=== PATIENT | female | born 1955 | race American Indian/Alaskan Native ===

== ENCOUNTER 2023-02-03 11:43 | Inpatient (IN) | payer OTHER ==
[2023-02-03] MEDS ORDERED: Albuterol/Ipratropium 3.0-0.5 MG/3 ML Neb Soln NEB ONE (12:01)
[2023-02-03] MEDS ORDERED: Sodium Chloride 0.9% 1,000 ML IV ONE ×3 (12:04→12:55)
[2023-02-03] MEDS ORDERED: cefTRIAXone 2 GM Vial IVPUSH ONE (12:06)
[2023-02-03] MEDS ORDERED: methylPREDNISolone Sodium Succinate 125 MG/2 ML SDV IVPUSH ONE (12:06)
[2023-02-03] MEDS ORDERED: Ondansetron 4 MG/2 ML SDV IV ONE ×2 (12:19→12:55)
[2023-02-03] MEDS ORDERED: Pantoprazole 40 MG Vial IVPUSH ONE (12:19)
[2023-02-03 12:21] LABS: HEMATOCRIT 25.4 % (37.0-47.0); HEMOGLOBIN 8.4 g/dL (12.0-16.0); MEAN CORPUSCULAR HGB CONC 33.1 g/dL (33.0-35.0); MEAN CORPUSCULAR VOLUME 87.6 fL (80-100); PLATELET COUNT,PLT 121 10^3/uL (150-450); WHITE BLOOD CELL COUNT,WBC 11.1 10^3/uL (5.0-10.0)
[2023-02-03] MEDS: Sodium Chloride 0.9% 10 ML Syringe FLUSH PRN ×4 (12:24→21:25)
[2023-02-03] MEDS ORDERED: Pantoprazole 40 MG in Sodium Chloride 0.9% 100 ML IV SCH (12:30)
[2023-02-03 12:31] LABS: BASOPHILS PERCENT AUTO 0.1 % (0.0-1.0); LYMPHOCYTES PERCENT AUTO 9.8 % (20.5-50.1); MONOCYTES PERCENT AUTO 6.9 % (2-8); NEUTROPHILS PERCENT AUTO 83.2 % (42.2-75.2)
[2023-02-03 12:38] LABS: APPEARANCE,URINE CLEAR (CLEAR); BILIRUBIN,URINE SMALL (NEGATIVE); COLOR,URINE YELLOW (YELLOW); GLUCOSE,URINE NEGATIVE (NEGATIVE); KETONES,URINE 15 (NEGATIVE); LEUKOCYTE ESTERASE,URINE NEGATIVE (NEGATIVE); NITRITE,URINE NEGATIVE (NEGATIVE); OCCULT BLOOD,URINE MODERATE (NEGATIVE); PH,URINE 5.5 (5.0-9.0); PROTEIN,URINE 100 (NEGATIVE); UROBILINOGEN,URINE 0.2 mg/dL (0.2-1.0)
[2023-02-03 12:42] LABS: INR 1.1 (0.9-1.2); PROTHROMBIN TIME 10.9 SEC (9.0-12.0); PTT,PARTIAL THROMBOPLSTIN TIME 41.4 SEC (22.0-34.0)
[2023-02-03 12:42] LABS: AMPHETAMINES,URINE NEGATIVE (NEGATIVE); BARBITURATES,URINE NEGATIVE (NEGATIVE); BENZODIAZEPINE,URINE NEGATIVE (NEGATIVE); MDMA (ECSTASY), URINE NEGATIVE (NEGATIVE); METHADONE,URINE NEGATIVE (NEGATIVE); METHAMPHETAMINES,URINE NEGATIVE (NEGATIVE); OPIATES,URINE NEGATIVE (NEGATIVE); OXYCODONE,URINE NEGATIVE (NEGATIVE); PHENCYCLIDINE,URINE NEGATIVE (NEGATIVE); TCA,URINE NEGATIVE (NEGATIVE)
[2023-02-03 12:47] LABS: B-TYPE NATRIURETIC PEPTIDE,BNP 12 pg/ml (0-100)
[2023-02-03 12:49] LABS: AMORPHOUS SEDIMENT,URINE FEW /HPF (NOT SEEN); BACTERIA,URINE MODERATE /HPF (0-FEW/HPF); EPITHELIAL CELLS,URINE FEW /HPF (NOT SEEN); HYALINE CASTS,URINE RARE; MUCUS,URINE FEW /LPF (NOT SEEN); WBC,URINE 0-5 /HPF (0-5/HPF)
[2023-02-03 12:49] LABS: LACTIC ACID 1.4 mmol/L (0.4-2.0)
[2023-02-03 12:50] LABS: BAND PERCENT MAN 14 %; LYMPHOCYTES PERCENT MAN 12 % (20-50); MONOCYTES PERCENT MAN 10 % (2-8); SEG NEUTROPHILS PERCENT MAN 64 % (42-75)
[2023-02-03 12:51] LABS: ALANINE AMINOTRANSFERASE,ALT 18 U/L (14-59); ALKALINE PHOSPHATASE 52 U/L (46-116); ANION GAP 16.2 mEq/L (7-13); ASPARTATE AMNIOTRANSFERASE,AST 25 U/L (15-37); BILIRUBIN TOTAL 0.4 mg/dL (0.2-1.0); BLOOD UREA NITROGEN,BUN 23 mg/dL (7-18); BUN/CREATININE RATIO 44.2 (No establ ref range); CARBON DIOXIDE,CO2 15 mmol/L (21-32); CHLORIDE,CL 116 mmol/L (98-107); CREATININE 0.52 mg/dL (0.55-1.02); EST CRCL DRUG DOSING (CG) 79.22 mL/min; GLUCOSE RANDOM 137 mg/dL (70-99); SODIUM,NA 145 mmol/L (136-145)
[2023-02-03 12:53] LABS: ESTIMATED GFR 102 mL/min (>=60); POTASSIUM,K 2.2 mmol/L (3.5-5.1)
[2023-02-03 12:54] LABS: A/G RATIO 0.33; CALCIUM 5.6 mg/dL (8.5-10.1); ETHANOL BLOOD MEDICAL < 3 mg/dL (0)
[2023-02-03] MEDS ORDERED: Vancomycin 2 GM in Sodium Chloride 0.9% 500 ML IV ONE (12:56)
[2023-02-03] MEDS ORDERED: NS with KCl 40mEq 1,000 ML IV SCH (13:00)
[2023-02-03] MEDS ORDERED: Magnesium Sulfate/Water 2 GM in Premix Bag 1 BAG IV ONE ×5 (13:20→13:22)
[2023-02-03] MEDS ORDERED: Calcium Chloride 10% 1 GM/10 ML Syringe IVPUSH ONE (13:20)
[2023-02-03] MEDS ORDERED: Bisacodyl 5 MG Tab PO PRN (16:25)
[2023-02-03] MEDS ORDERED: Docusate Sodium 100 MG Cap PO PRN (16:25)
[2023-02-03] MEDS ORDERED: Ondansetron 4 MG/2 ML SDV IVPUSH PRN (16:25)
[2023-02-03] MEDS ORDERED: NS + KCl 20mEq/L 1,000 ML IV SCH (16:30)
[2023-02-03] MEDS ORDERED: Potassium Chloride 20 MEQ in Premix Bag 1 BAG IV STA (16:35)
[2023-02-03] MEDS ORDERED: Potassium Chloride 10 MEQ Tab.ER PO STA (16:35)
[2023-02-03 16:55] LABS: CORONAVIRUS COVID-19 NAA NEGATIVE (NEGATIVE); INFLUENZA A NAA NEGATIVE (NEGATIVE); INFLUENZA B NAA NEGATIVE (NEGATIVE); RESPIRATORY SYNCYTIAL VIR NAA NEGATIVE (NEGATIVE)
[2023-02-03 17:04] LABS: HEMATOCRIT 32.7 % (37.0-47.0); MEAN CORPUSCULAR HEMOGLOBIN 29.3 pg (27.0-34.0); MEAN CORPUSCULAR HGB CONC 33.6 g/dL (33.0-35.0); MEAN CORPUSCULAR VOLUME 87.2 fL (80-100); RED BLOOD CELL COUNT 3.75 10^6/uL (4.2-5.4)
[2023-02-03] MEDS ORDERED: Glucagon,Human Recombinant 1 MG Vial IM PRN (17:07)
[2023-02-03] MEDS ORDERED: 50% Dextrose in Water 50 ML Syringe IVPUSH PRN (17:07)
[2023-02-03 17:26] LABS: ANION GAP 17.5 mEq/L (7-13); CALCIUM 9.3 mg/dL (8.5-10.1); CREATININE 0.79 mg/dL (0.55-1.02); EST CRCL DRUG DOSING (CG) 52.14 mL/min; POTASSIUM,K 4.5 mmol/L (3.5-5.1)
[2023-02-03] MEDS: Insulin Lispro 100 Units/ML 3 ML Vial SUBCUT SCH ×2 (18:07→21:22)
[2023-02-03] MEDS: Albuterol/Ipratropium 3.0-0.5 MG/3 ML Neb Soln NEB PRN (19:21)
[2023-02-03] MEDS: methylPREDNISolone Sodium Succinate 40 MG/1 ML SDV IVPUSH SCH (19:39)
[2023-02-03] MEDS: Albuterol 0.083% 2.5 MG/3 ML Neb Soln NEB PRN ×2 (19:54→22:02)
[2023-02-03 20:23] LABS: APPEARANCE,URINE CLEAR (CLEAR); BILIRUBIN,URINE NEGATIVE (NEGATIVE); COLOR,URINE YELLOW (YELLOW); GLUCOSE,URINE 500 (NEGATIVE); KETONES,URINE 40 (NEGATIVE); LEUKOCYTE ESTERASE,URINE NEGATIVE (NEGATIVE); NITRITE,URINE NEGATIVE (NEGATIVE); OCCULT BLOOD,URINE MODERATE (NEGATIVE); PROTEIN,URINE 30 (NEGATIVE); UROBILINOGEN,URINE 0.2 mg/dL (0.2-1.0)
[2023-02-03 20:31] LABS: BACTERIA,URINE OCCASIONAL /HPF (0-FEW/HPF); EPITHELIAL CELLS,URINE FEW /HPF (NOT SEEN); WBC,URINE 0-5 /HPF (0-5/HPF)
[2023-02-03] MEDS: Pantoprazole 40 MG Vial IVPUSH SCH (21:26)
[2023-02-03] MEDS: Acetaminophen 325 MG Tab PO PRN (22:11)
[2023-02-04] MEDS: Sodium Chloride 0.9% 10 ML Syringe FLUSH PRN ×3 (00:58→12:19)
[2023-02-04] MEDS: Ibuprofen 400 MG Tab PO PRN ×3 (03:24→21:24)
[2023-02-04] MEDS: Albuterol/Ipratropium 3.0-0.5 MG/3 ML Neb Soln NEB PRN ×3 (03:32→19:26)
[2023-02-04] MEDS: methylPREDNISolone Sodium Succinate 40 MG/1 ML SDV IVPUSH SCH (03:35)
[2023-02-04 06:11] LABS: HEMATOCRIT 32.5 % (37.0-47.0); HEMOGLOBIN 10.8 g/dL (12.0-16.0); MEAN CORPUSCULAR HEMOGLOBIN 29.1 pg (27.0-34.0); MEAN CORPUSCULAR HGB CONC 33.2 g/dL (33.0-35.0); MEAN CORPUSCULAR VOLUME 87.6 fL (80-100); PLATELET COUNT,PLT 152 10^3/uL (150-450); RED BLOOD CELL COUNT 3.71 10^6/uL (4.2-5.4); WHITE BLOOD CELL COUNT,WBC 14.2 10^3/uL (5.0-10.0)
[2023-02-04 06:23] LABS: BASOPHILS PERCENT AUTO 0.1 % (0.0-1.0); EOSINOPHILS PERCENT AUTO 0.1 % (1.0-3.0); LYMPHOCYTES PERCENT AUTO 4.6 % (20.5-50.1); MONOCYTES PERCENT AUTO 5.4 % (2-8); NEUTROPHILS PERCENT AUTO 89.8 % (42.2-75.2)
[2023-02-04 06:34] LABS: MAGNESIUM 2.4 mg/dL (1.8-2.4)
[2023-02-04 06:56] LABS: BAND PERCENT MAN 14 %; LYMPHOCYTES PERCENT MAN 3 % (20-50); MONOCYTES PERCENT MAN 3 % (2-8); SEG NEUTROPHILS PERCENT MAN 80 % (42-75)
[2023-02-04 08:06] LABS: ANION GAP 16.3 mEq/L (7-13); CALCIUM 9.4 mg/dL (8.5-10.1); CREATININE 0.84 mg/dL (0.55-1.02); EST CRCL DRUG DOSING (CG) 56.12 mL/min; POTASSIUM,K 5.3 mmol/L (3.5-5.1)
[2023-02-04] MEDS: predniSONE 20 MG Tab PO SCH (08:55)
[2023-02-04] MEDS: Acetaminophen 325 MG Tab PO PRN (08:56)
[2023-02-04] MEDS: Insulin Lispro 100 Units/ML 3 ML Vial SUBCUT SCH ×6 (08:57→21:14)
[2023-02-04] MEDS: Pantoprazole 40 MG Vial IVPUSH SCH ×2 (08:58→21:16)
[2023-02-04] MEDS: Nicotine 21 MG/24 Hr Patch TRDERM SCH (09:40)
[2023-02-04] MEDS ORDERED: Albuterol 6.7 GM Inhaler INH PRN (09:40)
[2023-02-04] MEDS: Aspirin 81 MG Tab.EC PO SCH (10:28)
[2023-02-04] MEDS: cefTRIAXone 2 GM Vial IVPUSH SCH (12:19)
[2023-02-04] MEDS: metFORMIN 500 MG Tab PO SCH (17:07)
[2023-02-04] MEDS: Insulin Glarg,Human.Rec.Analog 100 Unit/ML SUBCUT SCH (21:12)
[2023-02-04] MEDS: Montelukast 10 MG Tab PO SCH (21:15)
[2023-02-04] MEDS: Albuterol 0.083% 2.5 MG/3 ML Neb Soln NEB PRN (21:24)
[2023-02-05] MEDS: Acetaminophen 325 MG Tab PO PRN ×2 (00:30→23:40)
[2023-02-05] MEDS: Albuterol/Ipratropium 3.0-0.5 MG/3 ML Neb Soln NEB PRN ×3 (01:11→18:36)
[2023-02-05] MEDS: Ibuprofen 400 MG Tab PO PRN ×2 (03:49→21:51)
[2023-02-05 06:04] LABS: HEMATOCRIT 32.3 % (37.0-47.0); HEMOGLOBIN 10.8 g/dL (12.0-16.0); MEAN CORPUSCULAR HGB CONC 33.4 g/dL (33.0-35.0); MEAN CORPUSCULAR VOLUME 86.8 fL (80-100); PLATELET COUNT,PLT 139 10^3/uL (150-450); RED BLOOD CELL COUNT 3.72 10^6/uL (4.2-5.4); WHITE BLOOD CELL COUNT,WBC 12.9 10^3/uL (5.0-10.0)
[2023-02-05 06:14] LABS: BASOPHILS PERCENT AUTO 0.1 % (0.0-1.0); LYMPHOCYTES PERCENT AUTO 6.9 % (20.5-50.1); MONOCYTES PERCENT AUTO 5.4 % (2-8); NEUTROPHILS PERCENT AUTO 87.6 % (42.2-75.2)
[2023-02-05 06:18] LABS: CALCIUM 8.9 mg/dL (8.5-10.1); CREATININE 0.89 mg/dL (0.55-1.02); EST CRCL DRUG DOSING (CG) 52.97 mL/min
[2023-02-05 06:28] LABS: BAND PERCENT MAN 9 %; LYMPHOCYTES PERCENT MAN 8 % (20-50); MONOCYTES PERCENT MAN 5 % (2-8); SEG NEUTROPHILS PERCENT MAN 78 % (42-75)
[2023-02-05] MEDS: guaiFENesin/Dextromethorphan 100-10 MG/5 ML Soln 5 ML Cup PO PRN (06:35)
[2023-02-05] MEDS: Pantoprazole 40 MG Vial IVPUSH SCH ×2 (08:06→20:42)
[2023-02-05] MEDS: Nicotine 21 MG/24 Hr Patch TRDERM SCH (08:10)
[2023-02-05] MEDS: amLODIPine 5 MG Tab PO SCH (08:12)
[2023-02-05] MEDS: metFORMIN 500 MG Tab PO SCH ×2 (08:13→17:01)
[2023-02-05] MEDS: Insulin Lispro 100 Units/ML 3 ML Vial SUBCUT SCH ×7 (08:13→21:41)
[2023-02-05] MEDS: predniSONE 20 MG Tab PO SCH (08:13)
[2023-02-05] MEDS: Losartan 50 MG Tab PO SCH (08:13)
[2023-02-05] MEDS: Tiotropium Bromide 4 GM Inhalation Spray (2.5mcg/1 dose; 10 doses) SCH (08:17)
[2023-02-05] MEDS: Aspirin 81 MG Tab.EC PO SCH (08:23)
[2023-02-05] MEDS: cefTRIAXone 2 GM Vial IVPUSH SCH (12:44)
[2023-02-05] MEDS: Montelukast 10 MG Tab PO SCH (20:42)
[2023-02-05] MEDS: Insulin Glarg,Human.Rec.Analog 100 Unit/ML SUBCUT SCH (21:42)
[2023-02-06] MEDS: guaiFENesin/Dextromethorphan 100-10 MG/5 ML Soln 5 ML Cup PO PRN (03:11)
[2023-02-06] MEDS: Ibuprofen 400 MG Tab PO PRN (05:51)
[2023-02-06 05:59] LABS: HEMATOCRIT 33.5 % (37.0-47.0); HEMOGLOBIN 11.1 g/dL (12.0-16.0); MEAN CORPUSCULAR HGB CONC 33.1 g/dL (33.0-35.0); MEAN CORPUSCULAR VOLUME 87.5 fL (80-100); PLATELET COUNT,PLT 179 10^3/uL (150-450); RED BLOOD CELL COUNT 3.83 10^6/uL (4.2-5.4); WHITE BLOOD CELL COUNT,WBC 14.5 10^3/uL (5.0-10.0)
[2023-02-06 06:02] LABS: BASOPHILS PERCENT AUTO 0.1 % (0.0-1.0); EOSINOPHILS PERCENT AUTO 0.1 % (1.0-3.0); LYMPHOCYTES PERCENT AUTO 15.6 % (20.5-50.1); MONOCYTES PERCENT AUTO 4.9 % (2-8); NEUTROPHILS PERCENT AUTO 79.3 % (42.2-75.2)
[2023-02-06 06:11] LABS: BAND PERCENT MAN 7 %; LYMPHOCYTES PERCENT MAN 20 % (20-50); MONOCYTES PERCENT MAN 4 % (2-8); SEG NEUTROPHILS PERCENT MAN 69 % (42-75)
[2023-02-06] MEDS: Insulin Lispro 100 Units/ML 3 ML Vial SUBCUT SCH ×4 (07:47→12:16)
[2023-02-06] MEDS: predniSONE 20 MG Tab PO SCH (07:48)
[2023-02-06] MEDS: metFORMIN 500 MG Tab PO SCH (07:49)
[2023-02-06] MEDS: Acetaminophen 325 MG Tab PO PRN (07:49)
[2023-02-06] MEDS: Tiotropium Bromide 4 GM Inhalation Spray (2.5mcg/1 dose; 10 doses) SCH (07:59)
[2023-02-06] MEDS: Losartan 50 MG Tab PO SCH (07:59)
[2023-02-06] MEDS: amLODIPine 5 MG Tab PO SCH (07:59)
[2023-02-06] MEDS: Nicotine 21 MG/24 Hr Patch TRDERM SCH (08:00)
[2023-02-06] MEDS: Pantoprazole 40 MG Vial IVPUSH SCH (08:00)
[2023-02-06] MEDS: cefTRIAXone 2 GM Vial IVPUSH SCH (11:34)
[2023-02-06 11:53] VITALS: BP 150/72; PULSE 74
== END 2023-02-06 14:20 | disposition home or self-care (01) | DRG 871 ==
LOC: DL.ED 11:43 → UNDOADMIN 16:12 → DL.MS 16:12
PROVIDERS: ADMIT Internal Medicine; ATTEND Internal Medicine
DX: A41.9 Sepsis, unspecified organism (principal); J18.9 Pneumonia, unspecified organism; J44.0 Chronic obstructive pulmonary disease with (acute) lower respiratory infection; J44.1 Chronic obstructive pulmonary disease with (acute) exacerbation; D64.9 Anemia, unspecified; E86.0 Dehydration; Z20.822 Contact with and (suspected) exposure to COVID-19; F17.210 Nicotine dependence, cigarettes, uncomplicated; E11.9 Type 2 diabetes mellitus without complications; I10 Essential (primary) hypertension; E66.01 Morbid (severe) obesity due to excess calories; G89.29 Other chronic pain; Z79.4 Long term (current) use of insulin; Z79.899 Other long term (current) drug therapy; Z79.82 Long term (current) use of aspirin; Z79.51 Long term (current) use of inhaled steroids; Z98.49 Cataract extraction status, unspecified eye; Z98.890 Other specified postprocedural states
CPT/HCPCS: 0241U; 36415; 51702; 71045; 80048; 80053; 80202; 80305-QW; 80307; 81001; 82272; 82550; 82947; 83605; 83735; 83880; 84484; 85025; 85027; 85610; 85730; 87040; 93005; 93010; 94640; 96365; 96366; 96368; 96375; 96376; 97161-GP; 97165-GO; 97530-GO; 99223; 99233; 99239; 99285; 99285-25; A9270-GY; C9113; J0696; J1815-GY; J2405; J2920; J2930; J3370; J3475; J3480; J3490; J7030; J7040; J7050; J7512; J7613-GY; J7620-GY